=== PATIENT | male | born 1990 | race Caucasian/White ===

== ENCOUNTER 2016-06-15 13:35 | Emergency (ER) | payer OTHER ==
[2016-06-15 13:59] VITALS: BP 111/75
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
== END 2016-06-15 16:27 | disposition home or self-care (01) ==
LOC: ER 13:35
DX: S23.41XA Sprain of ribs, initial encounter (principal); X50.0XXA Overexertion from strenuous movement or load, initial encounter; F17.200 Nicotine dependence, unspecified, uncomplicated
CPT/HCPCS: 99283

== ENCOUNTER 2020-02-10 20:35 | Emergency (ER) | payer OTHER ==
[2020-02-10 20:41] VITALS: BP 120/76
[2020-02-10] MEDS ORDERED: FAMOTIDINE 20 MG TABLET PO ONE (21:08)
[2020-02-10] MEDS ORDERED: HYDROXYZINE HCL 10 MG TABLET PO ONE (21:08)
[2020-02-10] MEDS ORDERED: METHYLPREDNISOLONE INJ 125 MG/2 ML SDV IM ONE (21:08)
--- NOTE | 2020-02-10 21:09 | ER Document Report ---
ED Skin Rash/Insect Bite/Abscs - General Chief Complaint: Rash Stated Complaint: RASH Time Seen by Provider: 02/10/20 21:03 Primary Care Provider: SATHISH COLLINS MD [COMMUNITY BASED STAFF] - Follow up in 1 week TRAVEL OUTSIDE OF THE [place] IN LAST 30 DAYS: No - HPI Notes: 30-year-old male to the emergency department with complaints of progressively worsening poison faith to his body for the past 2 to 3 days. States initially got poison faith after working out in the yard on his right wrist and now he has had a significant reaction. He states that he has a rash all over spreading onto his face. Very itchy. Is been using topical hoow-mad-wxtsebi medicine such as calamine and Caladryl. He is also been taking Benadryl here and there. He denies any fevers or chills. He denies any sore throat, throat swelling, tongue swelling, lip swelling, difficulty breathing, chest pain, diarrhea, wheezing. - Related Data Allergies/Adverse Reactions: No Known Allergies Allergy (Verified 06/15/16 14:01) Past Medical History - General Information source: Patient - Social History Smoking Status: Current Every Day Smoker Frequency of alcohol use: Rare Drug Abuse: None Family History: Malignancy, Thyroid Disfunction GI Medical History: Reports: Hx Gastroesophageal Reflux Disease Musculoskeletal Medical History: Reports Hx Arthritis, Reports Hx Musculoskeletal Deformity - Immunizations Immunizations up to date: Yes Hx Diphtheria, Pertussis, Tetanus Vaccination: Yes Review of Systems - Review of Systems Constitutional: denies: Chills, Fever EENT: No symptoms reported. denies: Throat pain, Difficulty swallowing, Throat swelling, Mouth swelling Cardiovascular: denies: Chest pain, Dyspnea, Edema Respiratory: denies: Cough, Short of breath, Wheezing Gastrointestinal: denies: Abdominal pain, Diarrhea, Nausea, Vomiting Genitourinary: denies: Dysuria, Frequency Musculoskeletal: denies: Joint swelling, Muscle pain Skin: See HPI, Rash Neurological/Psychological: No symptoms reported -: Yes All other systems reviewed and negative Physical Exam - Vital signs Vitals: Temp Pulse Resp BP Pulse Ox 97.8 F 56 L 20 120/76 100 02/10/20 20:40 02/10/20 20:40 02/10/20 20:40 02/10/20 20:40 02/10/20 20:40 Interpretation: Normal - General General appearance: Appears well, Alert In distress: None - HEENT Head: Normocephalic, Atraumatic Eyes: Normal Pupils: PERRL Pharynx: Normal. No: Uvular edema, Potential airway comprom. Neck: Normal, Supple Notes: No lip swelling, tongue swelling, uvular edema, difficulty opening mouth, difficulty swallowing, posterior oropharyngeal edema. Airway is grossly patent. no rony's angina - Respiratory Respiratory status: No respiratory distress Chest status: Nontender Breath sounds: Normal. No: Rales, Rhonchi, Stridor, Wheezing Chest palpation: Normal - Cardiovascular Rhythm: Regular Heart sounds: Normal auscultation Murmur: No - Abdominal Inspection: Normal Distension: No distension Bowel sounds: Normal Tenderness: Nontender Organomegaly: No organomegaly - Back Back: Normal, Nontender - Extremities General upper extremity: Normal inspection, Nontender, Normal color, Normal ROM, Normal temperature General lower extremity: Normal inspection, Nontender, Normal color, Normal ROM, Normal temperature, Normal weight bearing. No: Juliano's sign - Neurological Neuro grossly intact: Yes Cognition: Normal Orientation: AAOx4 [place] Coma Scale Eye Opening: Spontaneous [place] Coma Scale Verbal: Oriented [place] Coma Scale Motor: Obeys Commands [place] Coma Scale Total: 15 Speech: Normal Motor strength normal: LUE, RUE, LLE, RLE Sensory: Normal - Psychological Associated symptoms: Normal affect, Normal mood - Skin Skin irregularity: Rash - To the right wrist there is honey crusted vesicular rash most consistent with a plant dermatitis. However, to the rest of the body there is a you to carry will we will rash most consistent with hives. This rash extends up the arms onto the abdomen and onto the legs. It is slightly coming up the neck and onto the face. There is no oral involvement. Course - Re-evaluation Re-evalutation: Impression: Allergic reaction with a plant dermatitis. We will go ahead and give a shot of Solu-Medrol here as well as Pepcid. Will start on Atarax, Solu- Medrol Dosepak, Pepcid for home use. Encouraged patient to return if his symptoms worsen at all. Patient agrees with the plan. Primary care follow-up. - Vital Signs Vital signs: Temp Pulse Resp BP Pulse Ox 97.8 F 56 L 20 120/76 100 02/10/20 20:40 02/10/20 20:40 02/10/20 20:40 02/10/20 20:40 02/10/20 20:40 Discharge - Discharge Clinical Impression: Allergic dermatitis due to poison faith Condition: Stable Disposition: HOME, SELF-CARE Instructions: Acute Allergic Reaction ([facility]), Contact Dermatitis ([facility]) Additional Instructions: Do not use any Benadryl. You have been written for an antihistamine called Atarax for itching. Use this instead. Complete all steroids. You may continue to use calamine lotion. Use Pepcid. Ensure that you are washing your hands frequently to prevent the spread of serum. Follow-up with primary care. Return if any worsening symptoms. Prescriptions: Hydroxyzine HCl [Atarax 10 mg Tablet] 20 mg PO Q8H #20 tablet Methylprednisolone [Medrol Dosepack (4 mg/Tab) 21 Tab/Dosepak] 4 mg PO ASDIR PRN #21 tab.ds.pk PRN Reason: Famotidine [Pepcid 20 mg Tablet] 20 mg PO BID #20 tablet Forms: Return to Work Referrals: SATHISH COLLINS MD [COMMUNITY BASED STAFF] - Follow up in 1 week
== END 2020-02-10 21:36 | disposition home or self-care (01) ==
LOC: ER 20:35
DX: L23.7 Allergic contact dermatitis due to plants, except food (principal); F17.200 Nicotine dependence, unspecified, uncomplicated
CPT/HCPCS: 99284; 96372; J2930